=== PATIENT | male | born 2000 | race Caucasian/White ===

== ENCOUNTER 2020-04-04 06:44 | Outpatient (NON) | payer OTHER, SELFPAY ==
[2020-04-05 02:42] LABS: SARS-CoV-2 RNA PCR Negative
== END 2020-04-04 06:45 ==
LOC: ANHCOVIDDT 07:01
PROVIDERS: Visit Provider Student in an Organized Health Care Education/Training Program
DX: R09.89 Other specified symptoms and signs involving the circulatory and respiratory systems (principal); Z20.828 Contact with and (suspected) exposure to other viral communicable diseases
CPT/HCPCS: 87635; C9803; U0003